=== PATIENT | male | born 1965 | race Caucasian/White ===

== ENCOUNTER 2023-08-12 18:28 | Outpatient (RCR) | payer OTHER, SELFPAY | END 2023-08-12 23:59 | disposition home or self-care (01) | LOC: RPT 18:28 | PROVIDERS: ATTENDING PHYSICIAN Orthopaedic Surgery Hand Surgery | DX: M25.512 Pain in left shoulder (principal); M75.52 Bursitis of left shoulder; Z73.6 Limitation of activities due to disability | CPT/HCPCS: 97010; 97110; 97112; 97140; 97161 ==

== ENCOUNTER → 2025-01-20 14:12 | Outpatient (REF) | payer OTHER, SELFPAY | LOC: HWRAD 14:12 | PROVIDERS: ATTENDING PHYSICIAN Student in an Organized Health Care Education/Training Program | DX: R50.9 Fever, unspecified (principal) | CPT/HCPCS: 71046 ==

== ENCOUNTER → 2025-01-27 12:34 | Outpatient (REF) | payer OTHER, SELFPAY | LOC: RAD 12:34 | PROVIDERS: ATTENDING PHYSICIAN Student in an Organized Health Care Education/Training Program | DX: R05.9 Cough, unspecified (principal); R50.9 Fever, unspecified | CPT/HCPCS: 74177; Q9967 ==

== ENCOUNTER 2025-02-08 16:45 | Emergency (ER) | payer OTHER, SELFPAY ==
[2025-02-08 16:53] VITALS: BP 137/82
[2025-02-08 17:16] LABS: Hematocrit 36.7 % (39.0-52.0); Hemoglobin 11.9 g/dL (13.0-18.0); Mean Corp Hgb Conc. 32.4 g/dL (33.0-37.0); Mean Corpuscular Volume 90.0 fL (80.0-94.0); Nucleated Red Blood Cells % 0 % (-); Platelet Count 541 10^3/uL (130-400); Red Cell Dist. Width 12.1 % (11.5-14.5)
[2025-02-08 17:34] LABS: ALT (SGPT) 65 U/L (0-50); AST (SGOT) 42 U/L (17-59); Albumin 4.0 g/dl (3.5-5.0); Alkaline Phosphatase 85 U/L (38-126); Blood Urea Nitrogen 15 mg/dl (9-20); Calcium 8.9 mg/dl (8.4-10.2); Carbon Dioxide 27 mmol/L (22-30); Chloride 101 mmol/L (98-107); Glucose 133 mg/dl (70-99); Potassium 4.8 mmol/L (3.5-5.1); Sodium 137 mmol/L (135-145); Total Protein 8.1 g/dl (6.3-8.2); eGFR > 60.00
[2025-02-08 20:09] VITALS: BP 171/75
--- NOTE | 2025-02-08 20:14 | ED.GENMED ---
History of Present Illness
General
Chief Complaint: Chest Pain
Source: patient
Exam Limitations: none
Time Seen by Provider: 02/08/25 20:13
Nursing documentation reviewed up to this point in time: agreed with
History of Present Illness
History of Present Illness:
59 yo male with with history of daily fever for 4 weeks, 'slew of blood work' by PCP Dr. Savage. States the only thing that came back positive was Schistoma IgG antibody positive and he has appointment with ID in 10 days.
Weight loss of 13 lbs in past month, Poor appetite.
He also had an CT abdomen pelvis with IV and oral contrast on 01/27 which showed nothing abnormal
His chest x-ray on 01/20 showed no acute disease.
He has had a cough with mid upper chest upper chest pain past 2 weeks and at 330 today developed right only upper chest pain /10, it hurt to press on it and it radiated down his right arm and up the back of his neck on the right side. This lasted
until for about 5 hours and at 5 PM it started subsiding and he now states it is only in his mid upper chest the way it has been in the past 2 weeks with his cough.
Past History
Past History
ED Past Medical History: None
ED Past Surgical History: None
Social History
Tobacco: Non-smoker
Alcohol: None
Personal:
Living: with family
Employment: Employed
Family History
Family History: Negative Early CAD
Review of Systems
Review of Systems
Allergies reviewed?: Yes
All Other Systems: ROS reviewed and negative except as documented in HPI and ROS
Phy Exam
Physical Exam
Physical Exam:
GENERAL: No acute distress. A&Ox3.
CONSTITUTIONAL: Temperature 103 for this examiner
EYES: clear, conjunctivae normal
ENMT: moist mucus membranes, Pharynx nl
RESPIRATORY: Regular respirations, nonlabored, lungs clear.
CARDIOVASCULAR: Regular rate and rhythm, no murmurs, no rubs. Tachycardic
GI: Soft, nontender, normal BS
MUSCULOSKELETAL: Moves with ease. Well perfused.
SKIN: Warm, dry, pink
PSYCH: Normal mood and affect. Well kept, interactive and appropriate
NEUROLOGIC: Awake, alert and oriented. No focal neurological deficits
Scores
Heart Score for Chest Pain Patients
STEMI patient?: Not applicable
Sepsis
Sepsis Screening
Sepsis Assessment: Sepsis Ruled Out
Sepsis Screen
Sepsis Screen: Sepsis Ruled Out
Date: 02/09/25
Time: 02:04
Course
Orders/Labs/Results
Orders:
Orders
02/08/25 16:45
ECG [Electrocardiogram (*1)] Urgent
Reason for Study: Chest Pain
EKG- Treatment ONCE
02/08/25 17:06
Complete Blood Count/With Diff Urgent
Comprehensive Metabolic Panel Urgent
Lactic Acid Q4H
Comment: ON ICE, CANCEL 2ND ORDER IF FIRST LACTIC ACID LEVEL <2
Blood Culture Q20M
[place] Source: Blood/Venous
Specimen Description:
Comment: Urgent from separate sites. If patient screens positive for possible sepsis
02/08/25 20:11
Urinalysis Reflex To Culture Urgent
Date Specimen was Collected: 02/08/25
Time Specimen was Collected: 16:58
Urine Microscopic Reflex Cult Urgent
Urine Culture Urgent
[place] Source: U
Specimen Description:
Date Specimen was Collected: 02/08/25
Time Specimen was Collected: 16:58
02/08/25 21:08
CR Chest - 2 Views Urgent
Comment:
Reason For Exam: cough, fever
02/08/25 21:11
0.9% Sodium Chloride 1000 ml [Nss] 1,000 ml IV BOLUS
Acetaminophen [Tylenol] 1,000 mg PO NOW STA
02/08/25 21:40
COVID-19 Antigen Urgent
Source: Nasal Swab
Troponin I Urgent
Blood Culture Q20M
[place] Source: Blood/Venous
Specimen Description:
Comment: Urgent from separate sites. If patient screens positive for possible sepsis
Influenza A+B Rapid Molecular Urgent
[place] Source: Nasal Swab
Specimen Description:
Abnormal Lab Results
02/08/25 02/08/25
17:06 20:11
WBC 11.1 H 10^3/uL
(4.8-10.8)
RBC 4.08 L 10^6/uL
(4.70-6.10)
Hgb 11.9 L g/dL
(13.0-18.0)
Hct 36.7 L %
(39.0-52.0)
MCHC 32.4 L g/dL
(33.0-37.0)
Plt Count 541 H 10^3/uL
(130-400)
Abs Immat Gran (auto) 0.1 H 10^3/uL
(0-0.05)
Absolute Neuts (auto) 8.5 H 10^3/uL
(1.4-6.5)
Absolute Monos (auto) 1.1 H 10^3/uL
(0.1-0.6)
Neutrophils % 76.2 H %
(42.2-75.2)
Lymphocytes % 12.4 L %
(20.5-51.1)
Monocytes % 10.0 H %
(1.7-9.3)
Glucose 133 H mg/dl
(70-99)
ALT 65 H U/L
(0-50)
Urine Ketones 1+ A
(Negative)
Ur Occult Blood Reflex 2+ A
(Negative)
Urine Bacteria (Reflex) Moderate A
(Negative)
Urine Albumin (Reflex) 1+ A
(Neg - Trace)
02/08/25 17:06
02/08/25 17:06
Vital Signs
Initial and Last Documented VS:
Initial Vital Signs
Temp Pulse Resp BP Pulse Ox
101.2 F H 107 15 137/82 97
02/08/25 16:53 02/08/25 16:53 02/08/25 16:53 02/08/25 16:53 02/08/25 16:53
Last Documented Vital Signs
Temp Pulse Resp BP Pulse Ox
99.8 F 99 18 111/65 97
02/08/25 22:37 02/08/25 23:00 02/08/25 23:40 02/08/25 23:00 02/08/25 23:00
MDM/Problems Addressed
Differential Diagnosis Includes:
OR, PNA, sepsis
MDM/Problems Addressed:
59 yo male with with history of daily fever for 4 weeks, 'slew of blood work' by PCP Dr. Savage. States the only thing that came back positive was Schistoma IgG antibody positive and he has appointment with ID in 10 days.
Weight loss of 13 lbs in past month, Poor appetite.
He also had an CT abdomen pelvis with IV and oral contrast on 01/27 which showed nothing abnormal
His chest x-ray on 01/20 showed no acute disease.
He has had a cough with mid upper chest upper chest pain past 2 weeks and at 330 today developed right only upper chest pain /, it hurt to press on it and it radiated down his right arm and up the back of his neck on the right side. This
lasted until for about 5 hours and at 5 PM it started subsiding and he now states it is only in his mid upper chest the way it has been in the past 2 weeks with his cough.
9:00 p.m.
Temp 103.0 po for this examiner, HR 113 sinus on monitor.
Tylenol and IVFs ordered
CBC, CMP with no significant abnormality.
Lactic 1.2
U/A unremarkable.
10:30 PM:
Troponin WNL
NAD
59-year-old male with
Daily fever past 4 weeks, recent significant workup, at out pt lab pt states only thing found significant was + Schistoma IgG antibody (results on his phone), referred to ID but could not get an appointment for another 10 days
He is here now for fever of 103, tachycardia, workup basically negative
Blood cultures pending
Defervesced to 99.0
Hospitalist and ID notified of admission
11:00 PM:
Hospitalist notified me that patient is asking to go home
Patient is asking to go home, this is reasonable since he has defervesced, he will follow-up with ID as scheduled.
Blood cultures pending. Patient understands that if they come back positive he will be called to come back
Pt Influenza B Pos. Pt informed
*Pulse Oximetry
SaO2: 97
Oxygen Mode of Delivery: Room air
Patient hypoxic: no
*EKG
EKG Intrepretation Date: 02/08/25
Interpretation: normal
Heart Rate: 97
Rate: normal
Rhythm: sinus
Head Waters: normal axis
Interval: normal interval
QRS Pattern: normal QRS
Ischemia: no ischemia
*Critical Care Note
Total Time (30-74mins, 75-104mins- exclusive of procedures): Not Applicable
ED Attending Note
-
Portions of this chart may have been created with voice recognition software.� Occasional wrong word or��sound alike� substitutions may have occurred due to the inherent limitations of voice recognition software.
Discharge Plan
Departure
Patient Disposition: Home (Routine Discharge)
Date of Disposition: 02/08/25
Time of Disposition: 21:23
Patient with high blood pressure during this ER visit?: No
Condition: Fair
Discharge Problem:
Fever, Atypical chest pain, Influenza
Instructions: Chest Pain That Is Not Caused by the Heart (DC), Fever in adults - ED (DC)
Referrals:
Your infectious disease doctor [Other] - Keep scheduled appt
Issac Mariano DO [Family Provider, Family Practice]
Activity Restrictions/Additional Instructions:
As we discussed, your fever has come down. Other than fever, your chest x-ray shows nothing worrisome and your lab work and urinalysis show nothing worrisome. Your last
Your blood cultures are pending and if they come back positive needing antibiotic therapy, we will call you back
Keep your appointment with infectious disease
Interventions
Interventions:
*Risk Screen - Suicide Last Done: 02/08/25 16:53
*General Assessment Last Done: 02/08/25 16:53
*Neglect/Abuse Screening Last Done: 02/08/25 16:53
*ED- Fall Risk Assessment Last Done: 02/08/25 21:58
*ED COVID-19 Vaccine History Last Done: 02/08/25 16:53
*Nursing Disposition Last Done: 02/08/25 23:40
ED- Cardiac Assessment Last Done: 02/08/25 20:57
Discharge Date and Time
Discharge Date/Time: 02/08/25 23:43
Print Language: [place]
[2025-02-08 20:20] LABS: Urine Character Clear (Clear)
[2025-02-08 20:33] LABS: Urine Squamous Cell 0-2 /LPF (Few)
[2025-02-08 20:34] LABS: Urine Red Blood Cell 0-2 /HPF (0-2); Urine White Cell 0-2 /HPF (0-5)
[2025-02-08 21:00] VITALS: BP 145/61
[2025-02-08 21:39] VITALS: BP 150/73
[2025-02-08] MEDS: TYLENOL 1000 MG PO (21:41)
[2025-02-08] MEDS: NSS 1000 IV (21:41)
[2025-02-08 22:00] VITALS: BP 129/63
[2025-02-08 22:04] LABS: COVID-19 Antigen Negative (Negative)
[2025-02-08 22:19] LABS: Troponin I < 0.012 ng/ml
[2025-02-08 23:00] VITALS: BP 111/65
== END 2025-02-08 23:43 | disposition home or self-care (01) ==
LOC: EMR 16:45
PROVIDERS: Emergency Medicine; Registered Nurse; EMERGENCY PHYSICIAN Emergency Medicine; FAMILY PHYSICIAN Student in an Organized Health Care Education/Training Program
DX: R07.89 Other chest pain (principal); J10.1 Influenza due to other identified influenza virus with other respiratory manifestations
CPT/HCPCS: 99284; 71046; 80053; 81003; 81015; 83605; 84484; 85025; 87040; 87086; 87502; 87811; 93005

== ENCOUNTER → 2025-03-06 10:56 | Outpatient (REF) | payer OTHER, SELFPAY | LOC: HWRAD 10:56 | PROVIDERS: ATTENDING PHYSICIAN Internal Medicine Infectious Disease; FAMILY PHYSICIAN Student in an Organized Health Care Education/Training Program | DX: R50.9 Fever, unspecified (principal) | CPT/HCPCS: 71250 ==

== ENCOUNTER → 2025-03-15 15:56 | Outpatient (REF) | payer OTHER, SELFPAY | LOC: RCS 15:56 | PROVIDERS: ATTENDING PHYSICIAN Internal Medicine Infectious Disease; FAMILY PHYSICIAN Family Medicine | DX: R50.9 Fever, unspecified (principal) | CPT/HCPCS: 93306 ==